=== PATIENT | female | born 1970 | race African-American/Black ===

== ENCOUNTER → 2024-01-12 19:22 | Outpatient (REF) | payer OTHER, SELFPAY | LOC: WDC 19:22 | PROVIDERS: ATTENDING PHYSICIAN Family Medicine | DX: Z12.31 Encounter for screening mammogram for malignant neoplasm of breast (principal) | CPT/HCPCS: 77063; 77067 ==

== ENCOUNTER → 2025-02-13 17:14 | Outpatient (REF) | payer OTHER, SELFPAY | LOC: WDC 17:14 | PROVIDERS: ATTENDING PHYSICIAN Family Medicine | DX: Z12.31 Encounter for screening mammogram for malignant neoplasm of breast (principal) | CPT/HCPCS: 77063; 77067 ==